=== PATIENT | female | born 1970 | race Two or more races ===

== ENCOUNTER → 2023-10-27 | Emergency (ER) | payer OTHER ==
[~2023-10-27] VITALS: Ht 154.9 cm; Wt 63.5 kg
[2023-10-27 10:30] VITALS: BP 128/91; TEMP 98.2; O2SAT 98
== END | disposition home or self-care (01) ==
LOC: ER 10:31
DX: S62.634A Displaced fracture of distal phalanx of right ring finger, initial encounter for closed fracture (principal); X58.XXXA Exposure to other specified factors, initial encounter; Y93.K1 Activity, walking an animal; Y92.89 Other specified places as the place of occurrence of the external cause; Y99.8 Other external cause status
CPT/HCPCS: 73140-TC